=== PATIENT | male | born 1970 | race Caucasian/White ===

== ENCOUNTER → 2017-11-12 | Outpatient (CLI) | payer OTHER ==
[~2017-11-12] MED LIST: ACID REDUCER20 M1 PO; AMLODIPINE BESYL5 MG PO; METOPROLOL SUCC50 MG PO; SINGULAIR10 MG PO; TELMISARTAN80 MG PO; ZYRTEC10 M3 PO
== END | disposition home or self-care (01) ==
LOC: OPR 07:31 → EDSTATUS 08:00 → OPR 08:00
PROC: 0TB13ZX Excision of Left Kidney, Percutaneous Approach, Diagnostic (ICD-10-PCS; principal; 2017-11-12)
DX: R80.9 Proteinuria, unspecified (principal); R31.9 Hematuria, unspecified; I10 Essential (primary) hypertension; M10.9 Gout, unspecified; E78.89 Other lipoprotein metabolism disorders
CPT/HCPCS: 77012; 88305; 88313 90; 88346 90; 88348 90